=== PATIENT | male | born 1975 | race Caucasian/White ===

== ENCOUNTER 2019-05-20 15:38 | Emergency (ER) | payer OTHER ==
[~2019-05-20] VITALS: Ht 190.5 cm; Wt 90.7 kg
[2019-05-20] MEDS ORDERED: ALPR1 PO (15:50)
[2019-05-20] MEDS ORDERED: Xanax1 MG PO (15:52)
== END 2019-05-20 16:02 | disposition home or self-care (01) ==
LOC: ER 15:38
DX: Z76.0 Encounter for issue of repeat prescription (principal); Z79.899 Other long term (current) drug therapy; F41.9 Anxiety disorder, unspecified; F17.290 Nicotine dependence, other tobacco product, uncomplicated
CPT/HCPCS: 99281